=== PATIENT | female | born 1980 | race Two or more races ===

== ENCOUNTER 2020-12-02 14:59 | Emergency (ER) | payer SELFPAY ==
[~2020-12-02] VITALS: Ht 167.6 cm; Wt 91.4 kg
--- NOTE | 2020-12-02 16:10 | NUR ---
PT AMBULATORY TO BR, PT CHANGED INTO GOWN. MONITORS IN PLACE. DAUGHTER AT BS. NADN/VSS. CALL LIGHT WITHIN REACH
--- NOTE | 2020-12-02 16:52 | NUR ---
PT TO RADIOLOGY
[2020-12-02] MEDS ORDERED: ACETAMINOPHEN 325 MG TABLET ONE (16:59)
[2020-12-02] MEDS ORDERED: METHOCARBAMOL 750 MG TABLET ONE (16:59)
[2020-12-02] MEDS ORDERED: KETOROLAC 30 MG/1 ML ONE (16:59)
[2020-12-02] MEDS ORDERED: KETOROLAC 30 MG/1 ML IM ONE (17:00)
[2020-12-02] MEDS ORDERED: ACETAMINOPHEN 325 MG TABLET PO ONE (17:00)
[2020-12-02] MEDS ORDERED: METHOCARBAMOL 750 MG TABLET PO ONE (17:00)
--- NOTE | 2020-12-02 17:22 | NUR ---
PT SITTING ON GURNEY WATCHING TV, DAUGHTER AT BS. NADN/VSS. MEDICATED PER EMAR. CALL LIGHT WITHIN REACH
--- NOTE | 2020-12-02 17:51 | NUR ---
PA AT BS
[2020-12-02 18:39] VITALS: BP 110/71
--- NOTE | 2020-12-02 18:40 | NUR ---
Patient given discharge instructions and they have confirmed that they understand the instructions. Patient ambulatory with steady gait.
== END 2020-12-02 18:45 | disposition home or self-care (01) ==
LOC: ED 18:15
DX: S16.1XXA Strain of muscle, fascia and tendon at neck level, initial encounter (principal); G44.219 Episodic tension-type headache, not intractable; G89.11 Acute pain due to trauma; M54.5 Low back pain; X58.XXXA Exposure to other specified factors, initial encounter; Y93.89 Activity, other specified; Y92.89 Other specified places as the place of occurrence of the external cause; Y99.8 Other external cause status
CPT/HCPCS: 72050; 72110; 96372; 99284; J1885

== ENCOUNTER 2021-04-17 18:00 | Emergency (ER) | payer MEDICAID, OTHER | END 2021-04-17 22:22 | LOC: ED 22:16 | DX: R51.9 Headache, unspecified (principal); Z53.21 Procedure and treatment not carried out due to patient leaving prior to being seen by health care provider ==

== ENCOUNTER 2021-05-06 11:37 | Emergency (ER) | payer SELFPAY ==
[~2021-05-06] VITALS: Ht 165.1 cm; Wt 75.0 kg
[2021-05-06 14:17] VITALS: BP 127/70
== END 2021-05-06 14:19 | disposition home or self-care (01) ==
LOC: ED 14:10
DX: R51.9 Headache, unspecified (principal); M62.838 Other muscle spasm; Z90.49 Acquired absence of other specified parts of digestive tract
CPT/HCPCS: 96372; 99284; J1885; Q0164